=== PATIENT | male | born 1960 | race Caucasian/White ===

== ENCOUNTER 2020-02-21 02:16 | Outpatient (CLI) | payer MEDICARE, SELFPAY ==
[2020-02-21 17:23] LABS: SARS-CoV-2 RNA PCR Negative
== END 2020-02-21 02:17 | disposition home or self-care (01) ==
LOC: ANHCOVIDDT 02:19
PROVIDERS: PCP Internal Medicine; Visit Provider Surgery
DX: Z01.812 Encounter for preprocedural laboratory examination (principal); Z20.822 Contact with and (suspected) exposure to COVID-19
CPT/HCPCS: C9803; U0003

== ENCOUNTER 2020-02-21 08:01 | Outpatient (CLI) | payer MEDICARE, SELFPAY | END 2020-02-21 08:02 | disposition home or self-care (01) | PROVIDERS: PCP Internal Medicine; Visit Provider Surgery | DX: Z01.818 Encounter for other preprocedural examination (principal); K40.90 Unilateral inguinal hernia, without obstruction or gangrene, not specified as recurrent | CPT/HCPCS: 36415; 86850; 86900; 86901; C9803; U0003 ==

== ENCOUNTER 2020-02-24 01:38 | Day surgery (SDC) | payer MEDICARE, SELFPAY ==
[2020-02-13 14:33] VITALS: BMI 24.1
[2020-02-24] VITALS (7 sets, daily range): BP systolic 120–137; BP diastolic 71–86; PULSE 67–94; RESP 10–20; TEMP 36.5–36.9; O2SAT 99–100
--- NOTE | 2020-02-24 09:43 | PM.IMHP ---
H&P: HPI History of Present Illness Date/Time: 02/24/20 09:43 Chief Complaint: right inguinal hernia Narrative: Patrice Awan is a 59 year old male presents with a right inguinal bulge that causes minor discomfort for the past 6 months that is constant. Nothing seems to relieves these symptoms. He has never had a hernia in the past. He reports that he seems to notices this daily. He first notices when he was working out in the gym until April but stopped due to COVID. He has been working out at home either walking or ride a bike. He has a history of a stroke. He is now seen in surgical evaluation at the request of Dr. Bashir. Review of Systems Review of Systems: All systems reviewed & are unremarkable except as noted in HPI and below PMFSH Past Medical History Medical History History of seizure History of stroke Surgical History Surgical History Status post stereotactic brain biopsy Family History Family History Father Family history of chronic obstructive pulmonary disease Family history of congestive heart failure Hypertension Mother Family history of type 2 diabetes mellitus Family history of diabetes mellitus in first degree relative Social History Social History Smoking status: Never smoker Alcohol intake: current Substance use: never Living arrangements: alone Gender identity (if verbalized by the patient): Male Sexual Orientation (if Verbalized by the Patient): Straight or Heterosexual Spiritual care concerns: No Meds Home Medications and Allergies Home Medications Medication Instructions Recorded Confirmed Type aspirin 81 mg tablet,delayed 81 mg PO DAILY 04/23/19 02/13/20 History release multivitamin 1 tablet PO DAILY 04/23/19 02/13/20 History sildenafil 100 mg tablet 100 mg PO DAILY PRN #60 tablet 11/06/19 02/13/20 Rx clobetasol 0.05 % scalp solution 1 applic TOPICAL DAILY 11/11/19 02/13/20 History clobetasol 0.05 % topical gel 1 applic TOPICAL BID #50 ml 01/08/20 02/13/20 Rx crisaborole [Eucrisa] 1 applic TOPICAL BID 02/13/20 02/13/20 History Allergies Allergy/AdvReac Type Severity Reaction Status Date / Time No Known Drug Allergies Allergy Unknown Other Verified 11/11/19 14:14 Exam Const: General: cooperative, healthy appearing, comfortable and no acute distress Nutritional Appearance: average body habitus Orientation/consciousness: patient oriented x3 Limitations: no limitations Resp: Effort & Inspection: normal respiratory effort Auscultation: clear to auscultation bilaterally Cardio: Jugular venous distension: no JVD Rate: regular rate Rhythm: regular rhythm GI: Inspection: normal to inspection GI Palp: No abdominal tenderness, Yes Soft to palpation, No Tenderness to palpation present (GI), No Guarding due to palpation present (GI) and No Rigid due to palpation Other: soft, NT, ND, +RIH, L sided weakness Assessment and Plan Assessment and plan (1) Right inguinal hernia: Code(s): K40.90 - Unilateral inguinal hernia, without obstruction or gangrene, not specified as recurrent Status: Acute Assessment and Plan: will setup for robotic repair c mesh, will exam in L side as well given weakness on exam
--- NOTE | 2020-02-24 09:46 | WPDHPUPDATE1 ---
History and Physical Update Update Date/Time: 02/24/20 09:46 History and Physical has been reviewed, including an updated exam of the patient. There are NO changes in the patient's condition. Risks, benefits, and alternatives have been discussed and questions answered. Patient agrees to proceed with procedure.
[2020-02-24] MEDS: ACETAMINOPHEN 500 MG TABLET 1000 MG PO (09:51)
[2020-02-24] MEDS: LACTATED RINGERS 1,000 ML 30 ML IV CONT ×2 (09:55→11:37)
[2020-02-24] MEDS: KETOROLAC 15 MG/ML VIAL (*BKC) IV PUSH (09:59)
--- NOTE | 2020-02-24 10:11 | WPDANESEPPF ---
Anes - Initial Pre Proc Eval Procedure: Operation Date: 02/24/20 10:30 Proposed Procedures p Robotic Assisted Laparoscopic Right Inguinal Hernia Repair With Mesh, Possible Open - Estefany Khanna MD Date/Time: 02/24/20 10:11 Surgeon: Estefany Khanna MD Pre Op Diagnosis: Right Inguinal Hernia Patient Data Age: 59 Gender: M Height: 6 ft Weight: 80.7 kg Allergies Allergy/AdvReac Type Severity Reaction Status Date / Time No Known Drug Allergies Allergy Unknown Other Verified 02/24/20 09:47 Home Medications Medication Instructions Recorded Confirmed Type aspirin 81 mg tablet,delayed 81 mg PO DAILY 04/23/19 02/24/20 History release multivitamin 1 tablet PO DAILY 04/23/19 02/24/20 History sildenafil 100 mg tablet 100 mg PO DAILY PRN #60 tablet 11/06/19 02/24/20 Rx clobetasol 0.05 % scalp solution 1 applic TOPICAL DAILY 11/11/19 02/24/20 History clobetasol 0.05 % topical gel 1 applic TOPICAL BID #50 ml 01/08/20 02/24/20 Rx crisaborole [Eucrisa] 1 applic TOPICAL BID 02/13/20 02/24/20 History Patient hx anesthesia problems: none Family hx anesthesia problems: none PMFSH Past Medical History Medical History History of seizure History of stroke Surgical History Surgical History Status post stereotactic brain biopsy Family History Family History Father Family history of chronic obstructive pulmonary disease Family history of congestive heart failure Hypertension Mother Family history of type 2 diabetes mellitus Family history of diabetes mellitus in first degree relative Social History Social History Smoking status: Never smoker Alcohol intake: current Substance use: never Living arrangements: alone Gender identity (if verbalized by the patient): Male Sexual Orientation (if Verbalized by the Patient): Straight or Heterosexual Spiritual care concerns: No Anes - Eval Final PreProcedure Day of Procedure 02/24/20 10:11 Patient weight: normal Heart: regular rate and rhythm Lungs: clear to auscultation Airway: Mallampati scale class II Neurological: alert and oriented Last oral intake: >/= 8 hours ASA classification: II Emergent: no Anesthetic plan: proceed Anesthesia type and monitoring: general ETT and standard monitoring Informed Consent: The patient's anesthetic plan and its attendant risks and benefits were discussed with the patient/family/POA. Questions were solicited and answers provided to the satisfaction of the patient/family/POA.
[2020-02-24] MEDS: ceFAZolin 2 GM/D5W 50 ML 2 GM/50 ML BAG IVPB (10:13)
[2020-02-24] MEDS: BUPIVACAINE HCL 0.5% PF 30 ML VIAL INFILTRATE (10:50)
--- NOTE | 2020-02-24 11:56 | SUR.PHASEI ---
PT AWAKE AND ALERT. TALKATIVE. DENIES PAIN OR NAUSEA.
--- NOTE | 2020-02-24 12:00 | PM.PROC ---
Procedure Note - Detailed Date of procedure: 02/24/20 Pre-op diagnosis: Right Inguinal Hernia Post-op diagnosis: same Procedure performed: robotic assisted left inguinal hernia repair Description of procedure: Patient was brought into the operating room and placed in the supine position. After adequate induction of general anesthesia, the patient was prepped and draped in normal sterile fashion. A time-out was then done to verify the patient's identity, as well as the procedure being performed. Began by making a 8 mm incision in the supraumbilical region, a Veress needle was then placed into the peritoneal cavity. CO2 gas was then insufflated and after adequate pneumoperitoneum was achieved, the Veress needle was removed. I then placed an 8 mm trocar through this incision. I then placed the endoscope through this trocar site and under direct visualization placed 2 further 8 mm ports in the right and left mid abdomen. The [employer] robot was then docked to the 3 trocar sites. I then scrubbed out and went to the robotic console. Upon examining the pelvis, it was noted that the patient had a right inguinal hernia. I then checked the left side and there was no hernia noted on the left. I began by making a preperitoneal flap approximately 6 cm superior to the defect. This flap was carried medially past the umbilical ligaments in laterally to the transversalis. It then began dissection of my medial compartment taking this down to the pubic tubercle. I then began the lateral dissection taking this down to the transversalis fascia. Once these compartments were achieved, I began dissection around the cord structures. It was noted at this point that the patient had a indirect hernia. Patient also had a small lipoma the cord. Using careful dissection, was able to reduce the lipoma cord as well separate the indirect hernia off the cord structures. Once this was adequately done, I went ahead and placed a 15 x 10 piece of [employer] mesh into the abdominal cavity. The mesh was carefully positioned, centering the center of the mesh over the indirect defect. Once this was done, was very satisfied with our repair. I then closed the peritoneal flap with a running 2.0 V Lock suture. The abdomen was then desufflated, and all ports were removed. All incisions were then closed with the 4.0 monocryl suture. Dermabond was placed on each wound. The patient tolerated the procedure well, was extubated in the operating room postoperatively, and will now be transferred to the recovery room in stable condition. Implants: 15 x 10 progrip mesh Anesthesia: GETA Surgeon: Estefany Khanna MD Estimated blood loss (mL): 10 Drains: No Packing: No Pathology: none sent Complications: No immediate complications Condition: stable Disposition: PACU Findings: indirect right inguinal hernia
--- NOTE | 2020-02-24 12:07 | SUR.PHASEI ---
PT AWAKE AND ALERT. TALKATIVE. STATES READY TO GO HOME.
--- NOTE | 2020-02-24 15:40 | SUR.PHASEII ---
1420 PT DRESSED & MEETS ANESTHESIA DISCHARGE CRITERIA. WAITING ON RIDE HOME.
== END 2020-02-24 14:42 | disposition home or self-care (01) ==
PROVIDERS: PCP Internal Medicine; Visit Provider Surgery
PROC: 8E0Y4CZ Robotic Assisted Procedure of Lower Extremity, Percutaneous Endoscopic Approach (ICD-10-PCS; CPT 49650; principal; 2020-02-24 10:30)
DX: K40.90 Unilateral inguinal hernia, without obstruction or gangrene, not specified as recurrent (principal); Z79.82 Long term (current) use of aspirin
CPT/HCPCS: 49650; S2900; 36415; 86850; 86900; 86901; A9270; C1781; C9803; J0690; J1100; J1885; J2250; J2370; J2405; J2704; J2710; J3010; J7120; U0003

== ENCOUNTER 2024-03-12 18:49 | Emergency (ER) | payer MEDICARE, SELFPAY ==
[2024-03-12 19:24] VITALS: BP 127/84; PULSE 89; RESP 16; TEMP 36.9; O2SAT 98
--- NOTE | 2024-03-12 19:35 | ED.WOUNDLAC ---
HPI - Wound/Laceration General Chief Complaint: Wound/Laceration Stated Complaint: Injured Right Thumb Time Seen by Provider: 03/12/24 19:35 Source: patient and RN notes reviewed Mode of arrival: ambulatory Limitations: no limitations History of Present Illness HPI narrative: 63-year-old male presents with concern for laceration to the distal 1st digit of the right hand he sustained a table saw prior to arrival. He denies decreased sensation, strength, range of motion in the digit. He is up-to-date on his tetanus vaccinations. Related Data Home Medications ?Medication ?Instructions ?Recorded ?Confirmed ?Last Taken ?Type aspirin 81 mg tablet,delayed 81 mg PO DAILY 04/23/19 02/01/24 02/23/20 History release (Adult Low Dose Aspirin) multivitamin 1 tablet PO DAILY 04/23/19 02/01/24 02/21/20 History crisaborole 2 % topical ointment 1 applic topical BID 02/13/20 02/01/24 02/23/20 History (Eucrisa) Allergies Allergy/AdvReac Type Severity Reaction Status Date / Time No Known Drug Allergies Allergy Unknown Other Verified 03/12/24 19:12 Review of Systems Review of Systems: CONSTITUTIONAL: Denies malaise, chills, sweats, or fever. SKIN: Reports laceration to the 1st digit of the right hand MUSCULOSKELETAL: Denies muscle skeletal pain NEUROLOGIC: Denies numbness, weakness All systems reviewed & are unremarkable except as noted in HPI and below PMFSH Past Medical History Medical History (Updated 03/12/24 @ 19:40 by Alannah Andujar NP) Primary angiitis of central nervous system Neuralgia Right leg numbness Encounter for other specified surgical aftercare Vaccine counseling Right inguinal hernia Inguinal hernia Eye exam, routine Stye external Strep throat Psoriasis History of seizure History of stroke Surgical History Surgical History H/O inguinal hernia repair 02/24/20 robotic assisted right inguinal hernia repair with mesh Status post stereotactic brain biopsy Family History Family History Father Family history of chronic obstructive pulmonary disease Family history of congestive heart failure Hypertension Mother Family history of type 2 diabetes mellitus Family history of diabetes mellitus in first degree relative Social History Social History Smoking status: Never smoker Second hand tobacco smoke exposure: No Alcohol intake: current Alcohol use details: social Substance use: never Lack of Transportation: No Lack of Food: Never True Current Housing: I Have Housing Concerned About Future Housing: No Difficulty Paying Gas/Electric Bills: No Difficulty Paying for Meds: No Currently Unemployed: Decline to Answer Education: Bachelor's Degree Difficulty w/ Childcare or Family Care: No Living arrangements: alone Occupation/Education: unemployed Gender identity (if verbalized by the patient): Male Sexual Orientation (if Verbalized by the Patient): Straight or Heterosexual Spiritual care concerns: No Comments At time of signature, agree with nursing past medical, surgical, social and family history. There is no relevant family history pertinent to the presenting complaint Exam Narrative: GENERAL: Well-appearing, well-nourished, and in no acute distress. HEAD: Normocephalic, atraumatic. EYES: PERRLA, conjunctivae clear, and EOMI. ENT: Mucous membranes moist. Oropharynx without edema, erythema or lesions. NECK: Supple. No lymphadenopathy CHEST: Clear to auscultation. No respiratory distress. HEART: Regular rate and rhythm. SKIN: Warm, dry, pink. Your regular laceration approximately 1.5 cm in diameter noted to the distal 1st digit of the right hand involving the fingernail EXT: 1st digit of right hand has normal strength, sensation, range of motion, cap refill is 3+ NEURO: Alert and oriented x3. PSYCH: Normal mood and affect Course Course Emergency Course: Patient is aware of diagnosis, understands and agrees to treatment plan. Anticipatory guidance given. Patient agrees to follow-up as directed and is aware of reasons to seek care at the emergency department. Portions of this record may have been created with voice recognition software Level of Care: Express Care Visit Vital Signs Vital signs: Vital Signs Temperature 98.4 F 03/12/24 19:24 Pulse Rate 89 03/12/24 19:24 Respiratory Rate 16 03/12/24 19:24 Blood Pressure 127/84 03/12/24 19:24 Pulse Oximetry 98 03/12/24 19:24 Temperature 98.4 F 03/12/24 19:24 Pulse Rate 89 03/12/24 19:24 Respiratory Rate 16 03/12/24 19:24 Blood Pressure 127/84 03/12/24 19:24 Pulse Oximetry 98 03/12/24 19:24 Reviewed. Procedures Laceration Laceration 1: Date: 03/12/24 Time: 19:36 Site: hand Side (If applicable): right Size (cm): 1.5 Description: irregular Depth: simple, single layer Local Anesthetic: lidocaine 1% Amount of anesthesia used (mL): 3 Pre-repair: wound explored and irrigated ====== Skin Level ====== Skin layer closed with: nylon Size (cm): 5-0 Number of sutures: 7 Technique: simple, interrupted ====== Subcutaneous Layer ====== ====== Muscle Layer ====== ====== Tendon Layer ====== MDM - Wound/Laceration MDM Narrative Medical decision making narrative: Wound explored for foreign body and copious irrigation provided with no evidence of FB. Discussed the potential of retained foreign body with the patient and signs/symptoms that should prompt the patient to immediately go to the ED for reevaluation. There was no evidence of tendon or nerve lacerations. A sterile dressing was then applied and anticipatory guidance was provided. Tetanus prophylaxis was not given Differential Diagnosis Differential diagnosis: Likely laceration, abrasion and avulsion of skin Critical Care Time Critical Care Time Critical Care Time: No Discharge Plan Discharge Clinical Impression: Laceration Patient Disposition: Home, Self-Care Condition: Stable Instructions: Finger Laceration (ED) Additional Instructions: Keep wound clean, and dry. Apply antibiotic ointment twice daily. Cover with bandage as needed to prevent contamination. Clean with soap and water twice daily, but do not soak, take baths, or swim until wound is completely healed. Do not clean with hydrogen peroxide. If any signs of infection such as redness, swelling, increasing pain, drainage of purulent discharge, streaks up your extremity develop, seek medical attention immediately. Followup with your primary care provider in 10 days for suture removal. After sutures are removed, keep your scar out of the sun. You may use OTC silicone pad and/or scar massage with ointment (for 10-15 min a day) after one month. Talk to your doctor if you think you are developing a keloid. Patient Language: Korean Prescriptions: No Action sildenafil 100 mg tablet 100 mg PO DAILY PRN (Reason: sexual activity) Qty: 60 0RF Rx Instructions: administer 30 minutes to 4 hours before activity aspirin [Adult Low Dose Aspirin] 81 mg tablet,delayed release (DR/EC) 81 mg PO DAILY multivitamin Tablet 1 tablet PO DAILY Eucrisa 2 % Ointment 1 applic TOPICAL BID rosuvastatin 5 mg tablet See Rx Instructions .ROUTE .COMPLEX Qty: 90 1RF Dose Instruction: TAKE 1 TABLET BY MOUTH EVERY DAY Rx Instructions: TAKE 1 TABLET BY MOUTH EVERY DAY Follow-up/Referrals: Marie Mcgrath APRN [Primary Care Provider] - Time of Disposition: 19:40
== END 2024-03-12 20:15 | disposition home or self-care (01) ==
PROVIDERS: Emergency Provider Nurse Practitioner; PCP Nurse Practitioner Family
DX: S61.012A Laceration without foreign body of left thumb without damage to nail, initial encounter (principal); W31.2XXA Contact with powered woodworking and forming machines, initial encounter; Z86.73 Personal history of transient ischemic attack (TIA), and cerebral infarction without residual deficits; Z79.82 Long term (current) use of aspirin
CPT/HCPCS: 12001; 99212; G0463; J2003

== ENCOUNTER 2024-07-25 10:47 | Outpatient (CLI) | payer MEDICARE, SELFPAY ==
--- NOTE | ~2024-07-25 | DEXA_ITS ---
Bone Density Report Name: BERNICE CASTELLANO Age: 64 Sex: Male Ethnicity: White Date of : 1960 Indication: history of glucocorticoids; prior fracture; Referring Provider: REYES SALAZAR Study: Bone densitometry was performed. Exam Date: July 25, 2024 Accession number: [id number] Bone Density: Region BMD T-score Z-score Classification AP Spine(L1-L4) 1.162 0.6 1.4 Normal Femoral Neck (Right) 0.895 -0.3 0.8 Normal Total Hip (Right) 1.108 0.5 1.0 Normal World Health Organization criteria for BMD impression classify patients as: Normal (T-score at or above -1.0), Osteopenia (T-score between -1.0 and -2.5), or Osteoporosis (T-score at or below -2.5). 10-year Fracture Risk: FRAX not reported because: All T-scores for Spine Total, Hip Total, Femoral Neck at or above -1.0 Prior hip or vertebral fracture Clinical Information Provided by Patient: Have had a previous hip or vertebral fracture Has had a low trauma fracture Has taken Glucocorticoids Has used the following medications: Vitamin D, Calcium Patient maximum height was 72 Drinks caffeinated beverages Impression: The patient has normal bone mass. The patient has risk factors, including: previous fracture, history of glucocorticoid therapy. Discussion: INCREASED RISK OF FRACTURE DUE TO HISTORY OF LOW TRAUMA FRACTURE. The patient's previous fracture puts the patient at high risk of a future fracture. In untreated patients, the risk of osteoporotic fracture increases approximately two-fold for each 1.0 SD decrease in T-score. Low bone density is not the only risk factor for fracture; also consider factors such as patient's age, frailty or poor health, risk of falling, risk of injury, previous osteoporotic fracture, family history of osteoporosis, cigarette smoking, low body weight, etc. Not everyone with a low trauma fracture has osteoporosis; osteomalacia and other metabolic bone disorders should also be considered. Patients who have osteoporosis should be evaluated for specific diseases and conditions (secondary causes) that may cause or contribute to bone loss and fracture risk. National Osteoporosis Foundation (NOF) recommends pharmacologic intervention for patients with a prior low trauma hip or vertebral fracture regardless of BMD T-score. The patient should follow a healthful lifestyle (good nutrition with adequate calcium and vitamin D, and appropriate weight-bearing exercise). Follow-Up: Consider a repeat BMD and Vertebral Fracture Assessment (VFA) exam in 2 years or sooner if medically necessary, to reassess this patient's status. Reported by: ALFREDITO on 07/25/2024 11:27:00 AM. Reviewed, dictated and finalized at location A.
== END 2024-07-25 10:48 | disposition home or self-care (01) ==
LOC: ANHIMG 10:52
PROVIDERS: PCP Nurse Practitioner Family; Visit Provider Nurse Practitioner Family
DX: M81.0 Age-related osteoporosis without current pathological fracture (principal)
CPT/HCPCS: 77080

== ENCOUNTER 2024-08-15 14:27 | Emergency (ER) | payer MEDICARE, SELFPAY ==
[2024-08-15 14:50] VITALS: BP 146/91; PULSE 100; RESP 18; TEMP 36.8; O2SAT 100
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
== END 2024-08-15 15:34 | disposition home or self-care (01) ==
PROVIDERS: Emergency Provider Nurse Practitioner; PCP Nurse Practitioner Family
DX: S51.812A Laceration without foreign body of left forearm, initial encounter (principal); W54.0XXA Bitten by dog, initial encounter; Z86.73 Personal history of transient ischemic attack (TIA), and cerebral infarction without residual deficits; Z79.82 Long term (current) use of aspirin
CPT/HCPCS: 99213; G0463